=== PATIENT | male | born 1950 | race Caucasian/White ===

== ENCOUNTER 2021-01-21 10:46 | Outpatient (CLI) | payer MEDICARE ==
[2021-01-21] MEDS ORDERED: REGADENOSON 0.4 MG/5 ML SYRINGE ONE (11:32)
== END 2021-01-21 23:59 | disposition home or self-care (01) ==
LOC: CVU 10:46 → CFH 23:59
PROVIDERS: ATTEND Internal Medicine Cardiovascular Disease
DX: I08.3 Combined rheumatic disorders of mitral, aortic and tricuspid valves (principal); I11.9 Hypertensive heart disease without heart failure; I25.10 Atherosclerotic heart disease of native coronary artery without angina pectoris
CPT/HCPCS: 78452; 93017; 93306; A9502; J2785